=== PATIENT | female | born 1950 | race Caucasian/White ===

== ENCOUNTER 2016-12-23 10:06 | Inpatient (IN) | payer MEDICARE, OTHER ==
[~2016-12-23] VITALS: Ht 165.1 cm; Wt 158.3 kg
[~2016-12-23 10:06] MED LIST: ASPIRIN81 MG PO; DILTIAZEM 24HR180 MG PO; ELIQUIS5 MG PO; ISOSORBIDE MONO60 MG PO; METHOCARBAMOL750 MG PO; PRILOSEC OTC20 MG PO; PROMETHAZINE HC25 M1 PO; SOTALOL120 MG PO; TRAMADOL HCL50 MG PO; VENLAFAXINE HCL75 M2 PO; ZESTRIL40 MG PO; ZOLPIDEM TARTRA10 MG PO
[2016-12-23 11:02] LABS: RED BLOOD COUNT 2.03 M/UL (4.00-5.10); WHITE BLOOD COUNT 8.3 K/UL (4.5-11.0)
[2016-12-23 11:05] LABS: HEMOGLOBIN 4.8 gm/dl (12.3-15.3)
[2016-12-23 18:54] LABS: HEMOGLOBIN 6.5 gm/dl (12.3-15.3)
[2016-12-24] MEDS ORDERED: HYDROCHLOROTHIA25 MG PO (00:39)
[2016-12-24] MEDS ORDERED: NITROSTAT0.4 MG SL (00:41)
[2016-12-24 03:49] LABS: HEMOGLOBIN 7.5 gm/dl (12.3-15.3); WHITE BLOOD COUNT 7.7 K/UL (4.5-11.0)
[2016-12-24 03:56] LABS: RED BLOOD COUNT 2.85 M/UL (4.00-5.10)
--- NOTE | 2016-12-24 07:36 | NUR ---
PT VERIFIED SHE CURRENTLY TAKES DILTIAZEM DAILY AT HOME WITH NO COMPLICATIONS, PRINTED MEDICATION LIST FROM PT PHARMACY, PLACED IN CHART,IN HOUSE PHARMACY AWARE.
[2016-12-25 05:53] LABS: WHITE BLOOD COUNT 9.1 K/UL (4.5-11.0)
[2016-12-25 05:56] LABS: RED BLOOD COUNT 3.15 M/UL (4.00-5.10)
[2016-12-25 06:14] LABS: BUN/CREATININE RATIO 11 (0-10)
[2016-12-26 12:22] LABS: HEMOGLOBIN 7.8 gm/dl (12.3-15.3)
[2016-12-26] MEDS ORDERED: PROTONIX40 MG PO (17:01)
== END 2016-12-26 18:09 | disposition home or self-care (01) | DRG 378 ==
LOC: ER1 10:06 → ZEROF 11:56 → PROG CARE 11:56
PROVIDERS: Emergency Medicine; ADMIT Internal Medicine
PROC: 30233N1 Transfusion of Nonautologous Red Blood Cells into Peripheral Vein, Percutaneous Approach (ICD-10-PCS; principal; 2016-12-23)
PROC: 0W3P8ZZ Control Bleeding in Gastrointestinal Tract, Via Natural or Artificial Opening Endoscopic (ICD-10-PCS; 2016-12-25)
DX: K29.51 Unspecified chronic gastritis with bleeding (principal); D62 Acute posthemorrhagic anemia; Q24.5 Malformation of coronary vessels; Z68.43 Body mass index [BMI] 50.0-59.9, adult; I48.0 Paroxysmal atrial fibrillation; E61.1 Iron deficiency; E66.01 Morbid (severe) obesity due to excess calories; I10 Essential (primary) hypertension; E78.5 Hyperlipidemia, unspecified; K21.9 Gastro-esophageal reflux disease without esophagitis; K44.9 Diaphragmatic hernia without obstruction or gangrene; I25.10 Atherosclerotic heart disease of native coronary artery without angina pectoris; G47.33 Obstructive sleep apnea (adult) (pediatric); M19.90 Unspecified osteoarthritis, unspecified site; Z88.2 Allergy status to sulfonamides; Z88.8 Allergy status to other drugs, medicaments and biological substances; Z79.01 Long term (current) use of anticoagulants; Z79.1 Long term (current) use of non-steroidal anti-inflammatories (NSAID); Z82.49 Family history of ischemic heart disease and other diseases of the circulatory system; Z88.6 Allergy status to analgesic agent; Z79.82 Long term (current) use of aspirin; Z79.899 Other long term (current) drug therapy
CPT/HCPCS: 36415; 36430; 71010; 80048; 80053; 82550; 82553; 82607; 82728; 82746; 83540; 83550; 83605; 83735; 83874; 83880; 84484; 85014; 85018; 85025; 85027; 85610; 85730; 86850; 86900; 86901; 86920; 87040; 93005; 96365; 96375; 96376; 99285; C9113; J2250; J2405; J2550; J3010; J7040; J7050; P9016

== ENCOUNTER → 2020-09-05 | Outpatient (CLI) | payer MEDICARE, OTHER ==
[~2020-09-05] MED LIST changes: +ALL DAY ALLERGY10 M2 PO; +AMBIEN10 MG PO; +BENADRYL 25MG C25 MG PO; +COREG 12.5MG12.5 MG PO; +COZAAR100 MG PO; +COZAAR50 MG PO; +DILTIAZEM 24HR180 M1 PO; +ESCITALOPRAM OX10 MG PO; +FLINTSTONES WIT18 MG PO; +HYDROCHLOROTHIA25 MG PO; +IMDUR ER TAB 6060 MG PO; +ISOSORBIDE MONO30 MG PO; +K-DUR TAB 20 M20 MEQ PO; +K-TAB ER20 MEQ PO; +LASIX 40 MG TAB40 MG PO; +LASIX40 MG PO; +LEVOTHYROXINE25 MCG PO; +NEURONTIN300 MG PO; +NITROSTAT0.4 MG SL; +OMEPRAZOLE20 M1 PO; +PROTONIX40 MG PO; +RANEXA500 MG PO; +TYLENOL PO; +VALSARTAN320 MG PO; +VENLAFAXINE HCL75 M1 PO
== END ==
LOC: NM 13:00
DX: I48.91 Unspecified atrial fibrillation (principal); I50.9 Heart failure, unspecified; R06.02 Shortness of breath; R07.9 Chest pain, unspecified; I27.20 Pulmonary hypertension, unspecified; I08.1 Rheumatic disorders of both mitral and tricuspid valves
CPT/HCPCS: ECHO; 78452; 93017; 93306; A9502; J2785

== ENCOUNTER → 2020-09-06 | Outpatient (CLI) | payer MEDICARE, OTHER | LOC: NM 12:39 | DX: I48.91 Unspecified atrial fibrillation (principal); I50.9 Heart failure, unspecified; R06.02 Shortness of breath; R07.9 Chest pain, unspecified; R94.39 Abnormal result of other cardiovascular function study ==

== ENCOUNTER → 2020-09-28 | Outpatient (CLI) | payer MEDICARE, OTHER ==
[~2020-09-28] VITALS: Ht 162.6 cm; Wt 154.2 kg
[2020-09-28 09:44] LABS: HEMOGLOBIN 14.1 gm/dl (12.3-15.3); RED BLOOD COUNT 4.44 M/UL (4.00-5.10); WHITE BLOOD COUNT 5.5 K/UL (4.5-11.0)
== END ==
LOC: CATH 08:00
PROVIDERS: Internal Medicine Cardiovascular Disease
DX: I25.10 Atherosclerotic heart disease of native coronary artery without angina pectoris (principal); I42.8 Other cardiomyopathies; I11.0 Hypertensive heart disease with heart failure; I50.9 Heart failure, unspecified; E78.5 Hyperlipidemia, unspecified; I73.9 Peripheral vascular disease, unspecified; J45.909 Unspecified asthma, uncomplicated; K21.9 Gastro-esophageal reflux disease without esophagitis; M81.0 Age-related osteoporosis without current pathological fracture; F41.0 Panic disorder [episodic paroxysmal anxiety]; F32.9 Major depressive disorder, single episode, unspecified; M06.9 Rheumatoid arthritis, unspecified; E66.01 Morbid (severe) obesity due to excess calories; Z68.43 Body mass index [BMI] 50.0-59.9, adult; Z82.49 Family history of ischemic heart disease and other diseases of the circulatory system; Z88.2 Allergy status to sulfonamides; Z91.048 Other nonmedicinal substance allergy status; Z88.8 Allergy status to other drugs, medicaments and biological substances; Z79.899 Other long term (current) drug therapy
CPT/HCPCS: 36415; 71045; 80048; 85025; 85610; 93005; 99152; 99153; C1769; C1887; C1894; J1644; J7030; Q9967

== ENCOUNTER → 2020-12-24 | Outpatient (CLI) | payer OTHER | LOC: CT 12-14 09:00 | DX: R10.13 Epigastric pain (principal); K74.60 Unspecified cirrhosis of liver | CPT/HCPCS: 36415; 74160; 82565; Q9963 ==